=== PATIENT | female | born 1955 | race Caucasian/White ===

== ENCOUNTER → 2020-10-02 | Outpatient (CLI) | payer MEDICARE, OTHER ==
--- NOTE | 2020-10-02 17:24 | RAD ---
BONE DENSITY AXIAL History: Reason: / Spl. Instructions: / History: Post menopausal TECHNIQUE: Dual energy x-ray absorptiometry of the lumbar spine and right femur was performed. T-score of average bone mineral density based was calculated based on standard deviations above or below the expected young adult normal value. Diagnostic definitions were established by the [employer]. FINDINGS: The average bone mineral density associated with L1-L4 is 1.254 g/cm^2, corresponding with a T-score of 0.6. The average total bone mineral density associated with right femur is 0.947 g/cm^2, corresponding with a T-score of -0.1. Isolated right femoral neck measurement -1.0 No comparison examinations are available. Refer to the worksheets for full detail. IMPRESSION: 1. Osteopenia according to isolate right femoral neck measurement. Average bone mineral density yields a T-score between -1.0 and -2.5. Fracture risk is increased. Electronically signed by: Hasmukh Stone DO (10/02/2020 5:21 PM) [id number]
== END ==
LOC: DXRAD 11:29
PROVIDERS: ATTEND Internal Medicine
DX: E11.9 Type 2 diabetes mellitus without complications (principal); Z79.4 Long term (current) use of insulin; M85.88 Other specified disorders of bone density and structure, other site
CPT/HCPCS: 77080